=== PATIENT | male | born 1995 | race American Indian/Alaskan Native ===

== ENCOUNTER 2020-01-04 10:15 | Emergency (ER) | payer SELFPAY ==
[2020-01-04 10:34] VITALS: BP 124/69
== END 2020-01-04 13:00 | disposition left against medical advice (07) ==
LOC: EDSEX → ED 10:15
DX: S81.852A Open bite, left lower leg, initial encounter (principal); Z53.21 Procedure and treatment not carried out due to patient leaving prior to being seen by health care provider; W54.0XXA Bitten by dog, initial encounter; Y93.89 Activity, other specified; Y92.89 Other specified places as the place of occurrence of the external cause; Y99.8 Other external cause status